=== PATIENT | female | born 1960 | race Caucasian/White ===

== ENCOUNTER 2017-01-23 17:17 | Emergency (ER) | payer MEDICAID ==
[2017-01-23 17:17] VITALS: BMI 24.7
[2017-01-23 17:30] VITALS: BP 98/62
[2017-01-23] MEDS ORDERED: TraMADol/Apap 37.5/325 mg Tab PO STA (17:32)
--- NOTE | 2017-01-23 17:35 | ED PDOC ---
Arrival/HPI - General Chief Complaint: Trauma Time Seen by Provider: 01/23/17 17:30 Historian: Patient - History of Present Illness Narrative History of Present Illness (Text): 01/23/17 17:31 56 y/o female, no significant pmh, nkda, c/o rt. hand pain x 1 week s/p fall. Pt. stated that she was watering the plant, prevent to break the fall, landed on the rt. hand thenar region, no head or neck injury, no chest pain or shortness of breath, no night sweat, no other medical or psychological complaint. Past Medical History - Provider Review Nursing Documentation Reviewed: Yes - Infectious Disease Hx of Infectious Diseases: None - Past Medical History Past Medical History: No Previous - Hematological/Oncological Hx Blood Transfusions: No Hx Blood Transfusion Reaction: No - Gastrointestinal Hx Gastroesophageal Reflux: Yes - Psychiatric Hx Depression: No Hx Emotional Abuse: No Hx Physical Abuse: No Hx Substance Use: No - Surgical History Hx Cataract Extraction: Yes (Left eye) Hx Section: Yes - Anesthesia Hx Anesthesia Reactions: No Hx Malignant Hyperthermia: No - Suicidal Assessment Feels Threatened In Home Enviroment: No Family/Social History - Physician Review Nursing Documentation Reviewed: Yes Family/Social History: Unknown Family HX Smoking Status: Never Smoked Hx Alcohol Use: No Hx Substance Use: No Allergies/Home Meds Allergies/Adverse Reactions: Allergies No Known Allergies Allergy (Verified 01/23/17 17:30) Review of Systems - Review of Systems Constitutional: absent: Fatigue, Fevers Eyes: absent: Vision Changes ENT: absent: Hearing Changes Respiratory: absent: SOB, Cough Cardiovascular: absent: Chest Pain Gastrointestinal: absent: Abdominal Pain, Nausea, Vomiting Musculoskeletal: Arthralgias, Myalgias. absent: Back Pain, Neck Pain, Joint Swelling Skin: absent: Rash, Pruritis, Skin Lesions, Laceration, Abscess, Ulcer, Cellulitis Physical Exam Vital Signs Reviewed: Yes Vital Signs Temp Pulse Resp BP Pulse Ox 01/23/17 17:34 98.6 F 88 17 99 01/23/17 17:23 98.8 F 86 16 98/62 L 95 Temperature: Afebrile Pulse: Regular Respiratory Rate: Normal Appearance: Positive for: Well-Appearing, Non-Toxic, Comfortable Pain Distress: Moderate Mental Status: Positive for: Alert and Oriented X 3 - Systems Exam Head: Present: Atraumatic, Normocephalic Pupils: Present: PERRL Extroacular Muscles: Present: EOMI Conjunctiva: Present: Normal Mouth: Present: Moist Mucous Membranes Neck: Present: Normal Range of Motion Respiratory/Chest: Present: Clear to Auscultation, Good Air Exchange. No: Respiratory Distress, Accessory Muscle Use Cardiovascular: Present: Regular Rate and Rhythm, Normal S1, S2. No: Murmurs Abdomen: Present: Normal Bowel Sounds. No: Tenderness, Distention, Peritoneal Signs Back: Present: Normal Inspection Upper Extremity: Present: Normal Inspection, Other (RUE: +ttp on the thenar 1st metatarsal region with skin intact, no finger or finger joint tenderness, FROM without limitation senseation intact, motor 5/5, no drift. ). No: Cyanosis, Edema Lower Extremity: Present: Normal Inspection. No: Edema Neurological: Present: GCS=15, CN II-XII Intact, Speech Normal Skin: Present: Warm, Dry, Normal Color. No: Rashes Psychiatric: Present: Alert, Oriented x 3, Normal Insight, Normal Concentration Medical Decision Making ED Course and Treatment: 01/23/17 17:36 -xray -tramadol -oberve and reasses 01/23/17 18:00 -xray wet read show: proximal 1st base metacarpal fracture. -Thumb spica splint applied by me with sling, neurovascularct,. -Discharge home with naproxen, thumb spica splint, ivana wrap, follow up with your own pmd within 2 days, return to the ER for any new or worsening signs ro symptoms. - RAD Interpretation Radiology Orders: 01/23/17 17:32 HAND RIGHT 3 VIEWS [RAD] Stat - Medication Orders Current Medication Orders: Discontinued Medications Tramadol/Acetaminophen (Ultracet 37.5/325 Mg) 2 tab PO STAT STA Stop: 01/23/17 17:33 Last Admin: 01/23/17 17:46 Dose: 2 tab - PA / LOCKER ROOM CLERK / Resident Statement MD/DO has reviewed & agrees with the documentation as recorded. Disposition/Present on Arrival - Present on Arrival Any Indicators Present on Arrival: No History of DVT/PE: No History of Uncontrolled Diabetes: No Urinary Catheter: No History of Decub. Ulcer: No History Surgical Site Infection Following: None - Disposition Have Diagnosis and Disposition been Completed?: Yes Diagnosis: Hand injury, Hand fracture Disposition: HOME/ ROUTINE Disposition Time: 18:02 Patient Plan: Discharge Condition: GOOD Additional Instructions: -Discharge home with naproxen, thumb spica splint, ivana wrap, follow up with your own pmd within 2 days, return to the ER for any new or worsening signs ro symptoms. Prescriptions: Naproxen 500 mg PO BID PRN #20 tab PRN Reason: Other Referrals: Jose Silva III, MD [Medical Doctor] - Follow up with primary Forms: [employer] ([place]), WORK NOTE
[2017-01-23 17:45] VITALS: PULSE 88; TEMP 98.6
[2017-01-23 18:20] VITALS: RESP 16; O2SAT 97
--- NOTE | 2017-01-24 08:11 | RAD ---
PROCEDURE: Right Hand Radiographs. HISTORY: rt. hand thenar in jury and pain COMPARISON: None. FINDINGS: BONES: Acute Fracture base of 1st metacarpal. The finding is marked on the study for review. Evidence of old scaphoid fracture. Juxta-articular osteopenia. JOINTS: Radiocarpal degenerative changes. Osteoarthritic changes. SOFT TISSUES: Normal. OTHER FINDINGS: None. IMPRESSION: Acute fracture 1st metacarpal. Concordant results with the preliminary interpretation rendered by the emergency department physician procedure.
== END 2017-01-23 18:19 | disposition home or self-care (01) ==
LOC: ED 17:17
DX: S62.231A Other displaced fracture of base of first metacarpal bone, right hand, initial encounter for closed fracture (principal); W01.0XXA Fall on same level from slipping, tripping and stumbling without subsequent striking against object, initial encounter; Y93.E9 Activity, other interior property and clothing maintenance; Y92.89 Other specified places as the place of occurrence of the external cause